=== PATIENT | female | born 1965 | race Caucasian/White ===

== ENCOUNTER 2024-05-21 11:50 | Emergency (ER) | payer OTHER ==
[~2024-05-21] VITALS: Ht 157.5 cm; Wt 70.3 kg
[2024-05-21 12:02] VITALS: BP_SYST 172; PULSE 84; RESP 16; TEMP 97.7; O2SAT 99
[2024-05-21] MEDS ORDERED: LISI20TA30 PO (12:30)
[2024-05-21] MEDS ORDERED: METF-1069 PO (12:30)
[2024-05-21] MEDS ORDERED: CLOP75TA32 PO (12:30)
[2024-05-21] MEDS ORDERED: FAMO40TA7 PO (12:30)
[2024-05-21] MEDS ORDERED: LIP40 PO (12:30)
[2024-05-21] MEDS ORDERED: ASPI-1077 PO (12:30)
[2024-05-21] MEDS ORDERED: AMLO5TAB4 PO (12:30)
[2024-05-21] MEDS ORDERED: INSU100V7 SUBCUT (12:35)
[2024-05-21 12:46] LABS: BASOPHILS % (AUTO) 0.3 % (0.0-2.0); EOSINOPHILS # (AUTO) 0.2 K/uL (0.0-0.4); EOSINOPHILS % (AUTO) 2.2 % (0.0-4.0); HEMATOCRIT 29.7 % (36-48); HEMOGLOBIN 9.6 g/dL (12.0-16.0); LYMPHOCYTES # (AUTO) 1.2 K/uL (1.0-5.5); LYMPHOCYTES % (AUTO) 16.8 % (20.5-51.5); MEAN CORPUSCULAR HEMOGLOBIN 28 pg (27-31); MEAN CORPUSCULAR HGB CONC 32 % (32-36); MEAN CORPUSCULAR VOLUME 88 fL (79.0-98.0); MONOCYTES # (AUTO) 0.4 K/uL (0.0-1.0); MONOCYTES % (AUTO) 5.9 % (1.7-9.3); NEUTROPHILS # (AUTO) 5.2 K/uL (1.8-7.7); NEUTROPHILS % (AUTO) 74.8 % (40.0-70.0); PLATELET COUNT (AUTO) 305 K/uL (130-430); RED BLOOD CELL COUNT(AUTO) 3.39 MIL/uL (4.2-6.2); RED CELL DISTRIBUTION WIDTH 14.6 % (9.0-15.0)
[2024-05-21 13:03] LABS: ALANINE AMINOTRANSFERASE 21 U/L (12-78); ALBUMIN 2.9 g/dL (3.4-4.8); ANION GAP 8 (5-15); ASPARTATE AMINOTRANSFERASE 19 U/L (10-37); BILIRUBIN,DIRECT 0.1 mg/dL (0.0-0.3); CALCIUM 9.2 mg/dL (8.4-11.0); CARBON DIOXIDE 29 mmol/L (23-29); CHLORIDE 103 mmol/L (98-107); CREATINE KINASE, TOTAL 29 U/L (26-192); CREATININE 1.06 mg/dL (0.55-1.30); GFR AFRICAN AMERICAN 69 mL/min (>90); GLUCOSE 153 mg/dL (74-106); SODIUM SERUM 140 mmol/L (136-145); TOTAL BILIRUBIN 0.3 mg/dL (0.0-1.0); TOTAL PROTEIN, SERUM 7.6 g/dL (6.4-8.3); UREA NITROGEN, BLOOD 16 mg/dL (8-21)
[2024-05-21 13:05] LABS: GFR NON AFRICAN-AMERICAN 57 mL/min (>90)
[2024-05-21 13:31] LABS: PROTHROMBIN TIME 10.6 SECS (9.5-12.5)
[2024-05-21 14:24] VITALS: BP_SYST 134; PULSE 78; RESP 16; TEMP 97.7; O2SAT 98
== END 2024-05-21 14:24 | disposition home or self-care (01) ==
LOC: SED 11:50
DX: I16.0 Hypertensive urgency (principal); I10 Essential (primary) hypertension; Z86.73 Personal history of transient ischemic attack (TIA), and cerebral infarction without residual deficits; Z79.899 Other long term (current) drug therapy; Z79.84 Long term (current) use of oral hypoglycemic drugs; Z79.82 Long term (current) use of aspirin
CPT/HCPCS: 36415; 71045; 80048; 80076; 82550; 83880; 84484; 85025; 85610; 85730; 93005; 99285